=== PATIENT | male | born 1930 | race African-American/Black ===

== ENCOUNTER 2017-05-19 14:35 | Inpatient (IN) | payer MEDICARE, BC ==
[~2017-05-19] VITALS: Ht 182.9 cm; Wt 139.7 kg
[~2017-05-19 14:35] MED LIST: ATEN50TA PO; CLON0.1T PO; CLOP75TA33 PO; FURO40TA5 PO; GABA-529 PO; POTA10CA42 PO
[2017-05-19 16:30] LABS: BASOPHILS % 0.4 % (0.0-2.0); EOSINOPHILS % 0.2 % (0.0-5.0); HEMOGLOBIN. 11.7 g/dL (14.0-18.0); LYMPHOCYTES % 27.6 % (20.0-50.0); MEAN CORPUSCULAR HEMOGLOBIN 29.7 pg (28.0-32.0); MEAN CORPUSCULAR VOLUME 89.1 fL (80.0-94.0); MEAN PLATELET VOLUME 8.9 fl (7.4-10.4); MONOCYTES % 9.2 % (2.0-8.0); NEUTROPHILS % 62.6 % (40.0-76.0); PLATELET 214 x1000/uL (130-400); RED BLOOD CELL COUNT 3.93 mill/uL (4.7-6.1); RED CELL DISTRIBUTION WIDTH 16.3 % (11.6-14.6)
[2017-05-19 16:36] LABS: CHLORIDE 102 mEq/L (98-107)
[2017-05-19 16:38] LABS: INR 1.1; PROTHROMBIN TIME 11.3 sec
[2017-05-19 16:45] LABS: CARBON DIOXIDE 30 mEq/L (21-32)
[2017-05-19 17:48] LABS: CLARITY URINE CLEAR (CLEAR); COLOR URINE PALE YELLOW (YELLOW); GLUCOSE URINE NEGATIVE (NEGATIVE); KETONES URINE NEGATIVE (NEGATIVE); LEUKOCYTE ESTERASE URINE NEGATIVE (NEGATIVE); NITRITE URINE NEGATIVE (NEGATIVE); OCCULT BLOOD URINE NEGATIVE (NEGATIVE); PH URINE 5.5 (4.5-8.0); PROTEIN URINE NEGATIVE (NEGATIVE); SPECIFIC GRAVITY URINE 1.009 (1.005-1.030); UROBILINOGEN URINE 0.2 E.U./dL (0.2-1.0)
[2017-05-19] MEDS ORDERED: SODIUM CHLORIDE 0.9% 1,000 ML IV ONE ×2 (18:15)
[2017-05-19 23:40] VITALS: BP 120/77
[2017-05-20] MEDS ORDERED: FURO80TA3 PO (01:43)
[2017-05-20] MEDS ORDERED: ASPI-1159 PO (01:44)
[2017-05-20] MEDS ORDERED: NITR0.4T3 SL (01:44)
[2017-05-20] MEDS ORDERED: VALS160T2 PO (01:44)
[2017-05-20] MEDS ORDERED: RANO500T3 PO (01:44)
[2017-05-20] MEDS ORDERED: DIGO250T4 PO (01:44)
[2017-05-20] MEDS ORDERED: POTA20TA75 PO (01:44)
[2017-05-20] MEDS ORDERED: CLON0.1T PO (01:44)
[2017-05-20] MEDS ORDERED: METOLAZONE PO (01:44)
[2017-05-20] MEDS ORDERED: FURO40TA5 PO (01:44)
[2017-05-20] MEDS ORDERED: NITROGLYCERIN 0.4MG TABLET SL SL PRN (05:00)
[2017-05-20] MEDS ORDERED: ACET-2178 PO ×2 (05:12→06:10)
[2017-05-20] MEDS ORDERED: TRAM50TA3 PO (05:12)
[2017-05-20] MEDS ORDERED: ASCO500C6 PO (05:12)
[2017-05-20] MEDS ORDERED: SPIR25TA4 PO (05:15)
[2017-05-20] MEDS ORDERED: ACETAMINOPHEN 325MG TABLET PO SCH (05:15)
[2017-05-20] MEDS ORDERED: ASPI-986 PO (05:15)
[2017-05-20] MEDS ORDERED: LISI-604 PO (05:15)
[2017-05-20] MEDS ORDERED: GABA100C PO (05:15)
[2017-05-20] MEDS ORDERED: METO25TA6 PO (05:15)
[2017-05-20] MEDS ORDERED: PANT40TA4 PO (05:23)
[2017-05-20] MEDS: SODIUM CHLORIDE 0.9% 1,000 ML IV SCH (06:05)
[2017-05-20] MEDS: LISINOPRIL 20MG TABLET PO SCH ×2 (06:23→17:22)
[2017-05-20] MEDS: METOPROLOL TARTRATE 25MG TABLET PO SCH ×2 (06:25→20:45)
[2017-05-20 06:27] LABS: BASOPHILS % 0.3 % (0.0-2.0); EOSINOPHILS % 0.1 % (0.0-5.0); HEMATOCRIT. 31.2 % (42.0-52.0); HEMOGLOBIN. 10.4 g/dL (14.0-18.0); LYMPHOCYTES % 29.2 % (20.0-50.0); MEAN CORPUSCULAR HEMOGLOBIN 29.6 pg (28.0-32.0); MEAN CORPUSCULAR VOLUME 88.9 fL (80.0-94.0); MEAN PLATELET VOLUME 8.4 fl (7.4-10.4); MONOCYTES % 9.2 % (2.0-8.0); NEUTROPHILS % 61.2 % (40.0-76.0); PLATELET 196 x1000/uL (130-400); RED BLOOD CELL COUNT 3.51 mill/uL (4.7-6.1); RED CELL DISTRIBUTION WIDTH 16.2 % (11.6-14.6)
[2017-05-20 08:00] VITALS: BP 128/79
[2017-05-20] MEDS: ASPIRIN 325MG TABLET PO SCH (09:05)
[2017-05-20] MEDS: FUROSEMIDE 40MG TABLET PO SCH ×2 (09:06→17:23)
[2017-05-20] MEDS: SPIRONOLACTONE 25MG TABLET PO SCH ×2 (09:06→17:21)
[2017-05-20] MEDS: GABAPENTIN 100MG CAPSULE PO SCH ×3 (09:06→17:21)
[2017-05-20] MEDS: CLOPIDOGREL 75MG TABLET PO SCH (09:06)
[2017-05-20 12:00] VITALS: BP 131/69
[2017-05-20 16:00] VITALS: BP 152/77
[2017-05-20 20:00] VITALS: BP 139/72
[2017-05-20] MEDS: POLYETHYLENE GLYCOL 3350 (17GM) 1 DOSE PACK PO SCH (20:42)
[2017-05-21] VITALS: BP 128/72
[2017-05-21 04:00] VITALS: BP 181/95
[2017-05-21] MEDS: LISINOPRIL 20MG TABLET PO SCH ×2 (05:29→16:57)
[2017-05-21] MEDS: SODIUM CHLORIDE 0.9% 1,000 ML IV SCH ×2 (07:25→20:45)
[2017-05-21 08:00] VITALS: BP 162/95
[2017-05-21] MEDS: GABAPENTIN 100MG CAPSULE PO SCH ×3 (08:46→16:56)
[2017-05-21] MEDS: FUROSEMIDE 40MG TABLET PO SCH ×2 (08:46→18:08)
[2017-05-21] MEDS: POLYETHYLENE GLYCOL 3350 (17GM) 1 DOSE PACK PO SCH (08:46)
[2017-05-21] MEDS: ENOXAPARIN 30MG/0.3ML SYR SUBCUT SCH ×2 (08:47→20:35)
[2017-05-21] MEDS: ASPIRIN 325MG TABLET PO SCH (08:47)
[2017-05-21] MEDS: METOPROLOL TARTRATE 25MG TABLET PO SCH ×2 (08:47→20:35)
[2017-05-21] MEDS: CLOPIDOGREL 75MG TABLET PO SCH (08:47)
[2017-05-21] MEDS: SPIRONOLACTONE 25MG TABLET PO SCH ×2 (08:47→16:57)
[2017-05-21] MEDS ORDERED: ENOXAPARIN 40MG/0.4ML SYR SUBCUT SCH (09:00)
[2017-05-21 12:00] VITALS: BP 123/75
[2017-05-21] MEDS ORDERED: NA PHOS,M-B/NA PHOS,DI-BA ENEMA 118ML PR NR (12:30)
[2017-05-21] MEDS ORDERED: LACTULOSE 20G/30ML UDC PO NR (12:30)
[2017-05-21 16:00] VITALS: BP 139/75
[2017-05-21 20:00] VITALS: BP 146/78
[2017-05-22] VITALS: BP 144/85
[2017-05-22 04:00] VITALS: BP 144/85
[2017-05-22] MEDS: LISINOPRIL 20MG TABLET PO SCH ×2 (05:46→18:06)
[2017-05-22 08:00] VITALS: BP 131/76
[2017-05-22] MEDS: GABAPENTIN 100MG CAPSULE PO SCH ×3 (08:31→18:06)
[2017-05-22] MEDS: ASPIRIN 325MG TABLET PO SCH (08:31)
[2017-05-22] MEDS: CLOPIDOGREL 75MG TABLET PO SCH (08:31)
[2017-05-22] MEDS: SPIRONOLACTONE 25MG TABLET PO SCH ×2 (08:35→18:06)
[2017-05-22] MEDS: FUROSEMIDE 40MG TABLET PO SCH ×2 (08:35→18:06)
[2017-05-22] MEDS: METOPROLOL TARTRATE 25MG TABLET PO SCH (08:36)
[2017-05-22] MEDS: ENOXAPARIN 30MG/0.3ML SYR SUBCUT SCH (08:37)
[2017-05-22] MEDS: POLYETHYLENE GLYCOL 3350 (17GM) 1 DOSE PACK PO SCH (09:00)
[2017-05-22] MEDS: SODIUM CHLORIDE 0.9% 1,000 ML IV SCH (10:05)
[2017-05-22 12:00] VITALS: BP 122/72
[2017-05-22] MEDS ORDERED: FUROSEMIDE 80MG TABLET PO SCH (14:50)
[2017-05-22 16:00] VITALS: BP 123/67
[2017-05-22 17:37] VITALS: BP 123/67
[2017-05-23] MEDS ORDERED: FUROSEMIDE 80MG TABLET PO SCH (09:00)
== END 2017-05-22 20:57 | DRG 683 ==
LOC: ER 16:10 → 6EST 18:46 → EDBEDREQ 19:07 → EDBEDREQSVC 19:07 → ENRESERV 21:55
PROVIDERS: ADMIT Hospitalist; ATTEND Hospitalist
DX: N17.9 Acute kidney failure, unspecified (principal); G45.9 Transient cerebral ischemic attack, unspecified; I10 Essential (primary) hypertension; I25.10 Atherosclerotic heart disease of native coronary artery without angina pectoris; E86.0 Dehydration; K59.00 Constipation, unspecified; Z86.73 Personal history of transient ischemic attack (TIA), and cerebral infarction without residual deficits
CPT/HCPCS: 36415; 51702; 71010; 80048; 80053; 81003; 83605; 85025; 85610; 87040; 87086; 93005; 97162; 99285; J1650; J7030